=== PATIENT | male | born 1945 | race Caucasian/White ===

== ENCOUNTER → 2016-07-27 | Outpatient (CLI) | payer MEDICARE ==
[~2016-07-27] MED LIST: ASPI-558 PO; CITA20TA9 PO; FENO160T12 PO; FURO20TA4 PO; INSU3INS3 SQ; LISI40TA4 PO; METF10002 PO; PRAV40TA3 PO; RIVA20TA PO; SOTA80TA PO
--- NOTE | 2016-07-27 09:01 | DI ---
Indication: ITS.REASON: N20.0 CALCULUS OF KIDNEY Procedure: CT RENAL W/O CONTRAST: Encounter: Initial Comparison: None Technique: Axial CT images were performed through the abdomen and pelvis without intravenous contrast. Coronal and sagittal reformatted images were also obtained. Automated Exposure Control and Iterative Reconstruction dose reducing techniques were utilized. Findings: Lower chest: The visualized lower lungs are well-aerated without focal airspace disease seen. The visualized heart is normal in size without pericardial effusion. Partially visualized cardiac pacer leads. Coronary arterial and thoracic aortic atherosclerotic calcifications. Abdomen: The noncontrast liver is homogeneous in attenuation. The gallbladder is partially contracted and appears grossly normal. No biliary ductal dilatation. The noncontrast pancreas is homogeneous in attenuation. The spleen is normal in size and attenuation. The adrenal glands are within normal limits. 2 mm nonobstructing superior pole left renal stone seen on axial image 74/coronal image 110. The noncontrast kidneys appear otherwise grossly normal. Renal vascular calcifications noted however no additional nephrolithiasis identified. The ureters are normal in course and caliber. 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 The stomach is partially distended and appears grossly normal. Small bowel loops are normal in caliber without evidence of obstruction. Colonic diverticulosis without associated inflammatory changes to suggest acute diverticulitis. The appendix is normal. No intra-abdominal free air, free fluid, focal fluid collections, or lymphadenopathy. Pelvis: The bladder is distended and appears normal. Nonspecific prostatic calcifications noted without overt prostatomegaly. No pelvic free fluid or lymphadenopathy. Calcified pelvic phleboliths. Osseous structures and soft tissues: No acute osseous abnormality identified. 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 Degenerative spondylosis of the visualized spine. Degenerative arthrosis of the SI joints, symphysis pubis, and hips. Partially visualized postoperative changes of median sternotomy. Impression: 1. 2 mm nonobstructing left renal stone. No hydroureteronephrosis or other evidence of obstructive uropathy. 2. Colonic diverticulosis without associated inflammatory changes to suggest acute diverticulitis. 3. 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 4. 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 Degenerative spondylosis of the spine and degenerative arthrosis of the hips, SI joints, and symphysis pubis. .
== END ==
LOC: IMA 07:35
PROVIDERS: ATTEND Urology
DX: N20.0 Calculus of kidney (principal); K57.10 Diverticulosis of small intestine without perforation or abscess without bleeding; M47.897 Other spondylosis, lumbosacral region